=== PATIENT | female | born 1975 | race Caucasian/White ===

== ENCOUNTER 2022-11-14 16:16 | Emergency (ER) | payer OTHER, SELFPAY ==
[2022-11-14 16:28] VITALS: BP 124/85; PULSE 76; TEMP 36.6; O2SAT 99; BMI 32.1
--- NOTE | 2022-11-14 16:56 | CRLHL7_ITS ---
For Patients: As a result of the Century Cures Act, medical imaging exams and procedure reports are released immediately into your electronic medical record. You may view this report before your referring provider. If you have questions, please contact your health care provider. INDICATION: Dyspnea on exertion. TECHNIQUE: Two-view chest. FINDINGS: Clear lungs. Normal heart size and pulmonary vascularity. Mild thoracolumbar curve. No acute rib or sternal fracture identified. IMPRESSION: No acute cardiopulmonary process identified. Dictated by Jose Angel John MD @ 11/14/2022 5:40:53 PM (Electronically Signed)
--- NOTE | 2022-11-14 16:58 | ED.GENADULT ---
HPI - General Adult General Chief complaint: Dizziness/Vertigo Stated complaint: chest tightness, fatigue Time Seen by Provider: 11/14/22 16:18 History of Present Illness HPI narrative: This 47-year-old female comes in for evaluation of diffuse symptoms of malaise. She states that these have been present for the past month or so. She does report some episodes of nausea and diaphoresis. She states that she feels like she is more short of breath when ambulating up stairs. She works as a physically impaired teacher and is generally pretty active but feels like she is more tired and short of breath recently. She states that she feels some discomfort in her right and anterior chest. This discomfort is distinctly reproducible when taking a deep breath. She does not report any injury event. She states that she was painting in the lower level before Alexi and wonders if the fumes triggered some symptoms. That was more than a month ago. She had some vertigo symptoms few weeks ago that was diagnosed as a benign positional vertigo. She went to physical therapy and did some maneuvers to correct this but states that it triggered migraine symptoms. Related Data Home Medications Medication Instructions Recorded Confirmed levothyroxine 75 mcg tablet mcg 11/14/22 sumatriptan succinate 100 mg tablet mg PO 11/14/22 Previous Rx's Medication Instructions Recorded methylprednisolone 4 mg tablets in See Rx Instructions PO .COMPLEX 11/14/22 a dose pack (Medrol (Doc)) #21 ea Allergies Allergy/AdvReac Type Severity Reaction Status Date / Time metronidazole [From Flagyl] Allergy Unknown Verified 11/14/22 16:34 nitrofurantoin Allergy Unknown Verified 11/14/22 16:34 [From Macrobid] Penicillins Allergy Unknown Verified 11/14/22 16:34 Seafood Allergy Unknown Uncoded 11/14/22 16:34 Review of Systems Status of ROS: Reports: 10 or more systems reviewed and unremarkable except as noted in History and below Narrative: Constitutional: No fevers, no weight gain or loss. Eyes: No discharge. No vision changes. HENT: No congestion, no sore throat, no ear pain. Cardiovascular: No palpitations. Right-sided chest discomfort or pressure that is reproducible with a deep breath. Respiratory: No wheezes, no cough. Some shortness of breath when ambulating stairs. Gastrointestinal: No abdominal pain, no vomiting, no diarrhea. Genitourinary: No dysuria, no hematuria. Musculoskeletal: Normal range of motion. Skin: No rashes, no pruritis. Neurological: No weakness, sensory change, speech change. She had some vertigo symptoms a few weeks ago. Endo/Heme/Allergies: No bruising or bleeding. No polydipsia. Pysch: no suicidality, no anxiety, no insomnia. All other systems reviewed and are negative. Exam Narrative: Exam Narrative: Constitutional: Well-developed, well-nourished, no acute distress. HEENT: Normocephalic, atraumatic. Neck: Normal range of motion. Nontender. Supple. Heart: Regular. No murmurs. Normal rate. Intact distal pulses. Lungs: Clear to auscultation. No chest discomfort. No wheezes, rhonchi, or rales. Abdomen: Normal bowel sounds. Nontender. No rebound tenderness. Genitalia: Deferred. Back: No midline tenderness. Normal range of motion. Extremities: Normal range of motion. No injury. Skin: Intact. No rash. Warm. No erythema or pallor. Neurologic: No altered sensation. No weakness. Alert and oriented. No nystagmus. Psychiatric: No suicidality. No anxiety or depression. No insomnia. Nursing notes and vitals signs are reviewed. Const: Vital Signs, click to edit/add: Vital Signs - 24 hr 11/14/22 16:28 Temperature 97.9 F Pulse Rate [Pulse Oximeter] 76 Blood Pressure [Ri ght Upper Arm] 124/85 Pulse Oximetry 99 Oxygen Delivery Me thod Room Air Course Vital Signs Vital signs: Initial Vital Signs Temperature 97.9 F 11/14/22 16:28 Temperature Source Temporal Artery Scan 11/14/22 16:28 Pulse Rate 76 11/14/22 16:28 Blood Pressure 124/85 11/14/22 16:28 Blood Pressure Mean 98 11/14/22 16:28 Blood Pressure Position Sitting 11/14/22 16:28 Pulse Oximetry 99 11/14/22 16:28 Oxygen Delivery Method 11/14/22 16:28 Vital Signs Temperature 97.9 F 11/14/22 16:28 Pulse Rate 76 11/14/22 16:28 Blood Pressure 124/85 11/14/22 16:28 Pulse Oximetry 99 11/14/22 16:28 Oxygen Delivery Method 11/14/22 16:28 Temperature 97.9 F 11/14/22 16:28 Pulse Rate 76 11/14/22 16:28 Blood Pressure 124/85 11/14/22 16:28 Pulse Oximetry 99 11/14/22 16:28 Oxygen Delivery Method 11/14/22 16:28 Medical Decision Making MDM Narrative Medical decision making narrative: This patient comes in reporting some generalized fatigue with occasional chest discomfort that is reproducible with deep breathing. She has also had some vertigo symptoms recently. She is otherwise in good health and works as a physically impaired teacher. She did have an EKG done a few days ago in clinic with normal findings. Lab results are acquired today and returned with reassuring findings. In particular her D-dimer, troponin, and white count are normal. Testing for COVID, influenza, RSV, and mononucleosis returned negative. This is reassuring to the patient. Her symptoms are reproducible with deep breathing suggesting chest wall pain. At the time of discharge the patient appears safe for outpatient management. The treatment plan is reviewed along with written and verbal return precautions. Reasons to return and the importance of close followup were also reviewed. She received a prescription for Medrol Dosepak. Lab Data Labs: Lab Results 11/14/22 11/14/22 11/14/22 Range/Units 16:18 16:58 17:35 WBC (4.50-11.00) K/uL RBC (4.00-5.20) m/uL Hgb (12.0-16.0) gm/dL Hct (33.0-51.0) % MCV (80-100) fL MCH (26-34) pg MCHC (32-36) gm/dL RDW Coeff of Irma (11.5-15.5) % Plt Count (140-440) K/uL Neut % (Auto) (42.0-72.0) % Lymph % (Auto) (20-44) % [place] % (Auto) (0.0-11.0) % Eos % (Auto) (0.0-7.0) % Baso % (Auto) (0.0-3.0) % Neut # (Auto) (1.7-7.0) K/uL Lymph # (Auto) (0.90-2.90) K/uL [place] # (Auto) (0.00-0.90) K/UL Eos # (Auto) (0.00-0.50) K/uL Baso # (Auto) (0.00-0.30) K/uL ESR (2-20) mm/hr D-Dimer Quant (PE/DVT) (0.00-0.50) ug/ml Sodium 141 (135-149) mmol/L Potassium 4.9 (3.6-5.1) mmol/L Chloride 104 (96-114) mmol/L Carbon Dioxide 25 (20-32) mmol/L BUN 20 (5-24) mg/dL Creatinine 1.0 (0.5-1.5) mg/dL Estimated Creat Clear 76.06 Estimated GFR 69 ml/min Glucose 92 (60-115) mg/dL Calcium 9.7 (8.4-10.6) mg/dL Total Bilirubin (0.1-1.5) mg/dL Direct Bilirubin (0.0-0.5) mg/dL AST (12-35) U/L ALT (4-35) U/L Alkaline Phosphatase (40-150) U/L Total Protein (6.0-8.3) g/dL Albumin (3.3-5.0) g/dL TSH (0.270-4.20) uIU/mL SARS-CoV-2 (PCR) Negative SARS-CoV-2 (Negative) Monoscreen (Negative) Influenza Type A (PCR) Negative PCR FLU A (Negative) Influenza Type B (PCR) Negative PCR FLU B (Negative) RSV (PCR) Negative PCR RSV (Negative) POC Troponin I 0.00 L (0.01-0.04) ng/ml 11/14/22 11/14/22 11/14/22 Range/Units 17:35 17:35 17:35 WBC 7.95 (4.50-11.00) K/uL RBC 4.56 (4.00-5.20) m/uL Hgb 12.9 (12.0-16.0) gm/dL Hct 40.0 (33.0-51.0) % MCV 88 (80-100) fL MCH 28 (26-34) pg MCHC 32 (32-36) gm/dL RDW Coeff of Irma 14.0 (11.5-15.5) % Plt Count 267 (140-440) K/uL Neut % (Auto) 55.9 (42.0-72.0) % Lymph % (Auto) 36.9 (20-44) % [place] % (Auto) 5.8 (0.0-11.0) % Eos % (Auto) 0.9 (0.0-7.0) % Baso % (Auto) 0.5 (0.0-3.0) % Neut # (Auto) 4.45 (1.7-7.0) K/uL Lymph # (Auto) 2.93 H (0.90-2.90) K/uL [place] # (Auto) 0.50 (0.00-0.90) K/UL Eos # (Auto) 0.07 (0.00-0.50) K/uL Baso # (Auto) 0.04 (0.00-0.30) K/uL ESR 16 (2-20) mm/hr D-Dimer Quant (PE/DVT) (0.00-0.50) ug/ml Sodium (135-149) mmol/L Potassium (3.6-5.1) mmol/L Chloride (96-114) mmol/L Carbon Dioxide (20-32) mmol/L BUN (5-24) mg/dL Creatinine (0.5-1.5) mg/dL Estimated Creat Clear Estimated GFR ml/min Glucose (60-115) mg/dL Calcium (8.4-10.6) mg/dL Total Bilirubin (0.1-1.5) mg/dL Direct Bilirubin (0.0-0.5) mg/dL AST (12-35) U/L ALT (4-35) U/L Alkaline Phosphatase (40-150) U/L Total Protein (6.0-8.3) g/dL Albumin (3.3-5.0) g/dL TSH (0.270-4.20) uIU/mL SARS-CoV-2 (PCR) (Negative) Monoscreen Negative (Negative) Influenza Type A (PCR) (Negative) Influenza Type B (PCR) (Negative) RSV (PCR) (Negative) POC Troponin I (0.01-0.04) ng/ml 11/14/22 11/14/22 11/14/22 Range/Units 17:35 17:35 17:35 WBC (4.50-11.00) K/uL RBC (4.00-5.20) m/uL Hgb (12.0-16.0) gm/dL Hct (33.0-51.0) % MCV (80-100) fL MCH (26-34) pg MCHC (32-36) gm/dL RDW Coeff of Irma (11.5-15.5) % Plt Count (140-440) K/uL Neut % (Auto) (42.0-72.0) % Lymph % (Auto) (20-44) % [place] % (Auto) (0.0-11.0) % Eos % (Auto) (0.0-7.0) % Baso % (Auto) (0.0-3.0) % Neut # (Auto) (1.7-7.0) K/uL Lymph # (Auto) (0.90-2.90) K/uL [place] # (Auto) (0.00-0.90) K/UL Eos # (Auto) (0.00-0.50) K/uL Baso # (Auto) (0.00-0.30) K/uL ESR (2-20) mm/hr D-Dimer Quant (PE/DVT) < 0.27 (0.00-0.50) ug/ml Sodium (135-149) mmol/L Potassium (3.6-5.1) mmol/L Chloride (96-114) mmol/L Carbon Dioxide (20-32) mmol/L BUN (5-24) mg/dL Creatinine (0.5-1.5) mg/dL Estimated Creat Clear Estimated GFR ml/min Glucose (60-115) mg/dL Calcium (8.4-10.6) mg/dL Total Bilirubin 0.6 (0.1-1.5) mg/dL Direct Bilirubin 0.2 (0.0-0.5) mg/dL AST 29 (12-35) U/L ALT 25 (4-35) U/L Alkaline Phosphatase 62 (40-150) U/L Total Protein 8.4 H (6.0-8.3) g/dL Albumin 5.0 (3.3-5.0) g/dL TSH 2.830 (0.270-4.20) uIU/mL SARS-CoV-2 (PCR) (Negative) Monoscreen (Negative) Influenza Type A (PCR) (Negative) Influenza Type B (PCR) (Negative) RSV (PCR) (Negative) POC Troponin I (0.01-0.04) ng/ml Imaging Data Chest x-ray: Radiologist's impression: No acute cardiopulmonary process identified. Discharge Plan Discharge Clinical Impression: Acute chest wall pain Patient Disposition: Home, Self-Care Condition: Stable Additional Instructions: Take medication as prescribed. Use [id number] medicines also as needed and directed. Increase activity as tolerated. Follow up with MD or return if worsening. Prescriptions: New methylprednisolone [Medrol (Doc)] 4 mg tablets,dose pack See Rx Instructions .ROUTE .COMPLEX Qty: 21 0RF Rx Instructions: orally per package directions No Action sumatriptan succinate 100 mg tablet PO Label Comments: TAKE 1 TAB BY MOUTH AT ONSET OF MIGRAINE, MAY TAKE 1 MORE TAB 2 HRS LATER IF NEEDED (MAX 2/24 HRS). levothyroxine 75 mcg tablet Follow Up/Referrals: Provider,Not a Local [Primary Care Provider] - Stand Alone Forms: MyHealth Info Instructions
[2022-11-14 17:19] LABS: PCR FLU A Negative PCR FLU A (Negative); PCR FLU B Negative PCR FLU B (Negative); PCR RSV Negative PCR RSV (Negative)
[2022-11-14 17:23] LABS: SARS PCR* Negative SARS-CoV-2 (Negative)
[2022-11-14 17:44] LABS: Basophils Absolute Auto 0.04 K/uL (0.00-0.30); Basophils Percent Auto 0.5 % (0.0-3.0); Eosinophils Absolute Auto 0.07 K/uL (0.00-0.50); Eosinophils Percent Auto 0.9 % (0.0-7.0); Hemoglobin* 12.9 gm/dL (12.0-16.0); Lymphocytes Absolute Auto 2.93 K/uL (0.90-2.90); Lymphocytes Percent Auto 36.9 % (20-44); Mean Corpuscular HGB Conc 32 gm/dL (32-36); Mean Corpuscular Hemoglobin 28 pg (26-34); Mean Corpuscular Volume 88 fL (80-100); Monocytes Percent Auto 5.8 % (0.0-11.0); Neutrophils Absolute Auto 4.45 K/uL (1.7-7.0); Neutrophils Percent Auto 55.9 % (42.0-72.0); Platelet Count* 267 K/uL (140-440); Red Blood Count 4.56 m/uL (4.00-5.20); White Blood Count* 7.95 K/uL (4.50-11.00)
[2022-11-14 17:47] LABS: Slide Review Reflex No
[2022-11-14 17:59] LABS: Mono Screen* Negative (Negative)
[2022-11-14 18:15] LABS: Chloride* 104 mmol/L (96-114); Potassium* 4.9 mmol/L (3.6-5.1); Sodium* 141 mmol/L (135-149)
[2022-11-14 18:18] LABS: Blood Urea Nitrogen* 20 mg/dL (5-24); Carbon Dioxide* 25 mmol/L (20-32); Est. Creatinine Clearance* 76.06; Estimated Glomerular Filt Rate 69 ml/min; Glucose* 92 mg/dL (60-115)
[2022-11-14 18:19] LABS: Alanine Aminotransferase* 25 U/L (4-35); Aspartate Amino Transferase* 29 U/L (12-35); Bilirubin Direct* 0.2 mg/dL (0.0-0.5); Bilirubin Total* 0.6 mg/dL (0.1-1.5); Calcium* 9.7 mg/dL (8.4-10.6); Total Protein* 8.4 g/dL (6.0-8.3)
[2022-11-14 18:29] LABS: D Dimer Quantitative* < 0.27 ug/ml (0.00-0.50)
[2022-11-14 18:37] LABS: Erythrocyte SedimentationRate* 16 mm/hr (2-20)
[2022-11-14 19:19] LABS: Alkaline Phosphatase* 62 U/L (40-150)
[2022-11-14 19:48] VITALS: PULSE 75; O2SAT 98
== END 2022-11-14 19:50 | disposition home or self-care (01) ==
PROVIDERS: Emergency Provider Emergency Medicine Emergency Medical Services
DX: R07.89 Other chest pain (principal)
CPT/HCPCS: 36415; 71046; 80048; 80076; 84443; 84484; 85025; 85379; 85651; 86308; 87502; 87634; 87635; 99284

== ENCOUNTER 2022-11-16 13:40 | Emergency (ER) | payer OTHER, SELFPAY ==
[2022-11-16] VITALS (12 sets, daily range): BP systolic 126–140; BP diastolic 8–84; PULSE 57–68; RESP 20; TEMP 37.3; O2SAT 98–100; BMI 32.1
--- NOTE | 2022-11-16 14:04 | CRLHL7_ITS ---
For Patients: As a result of the Century Cures Act, medical imaging exams and procedure reports are released immediately into your electronic medical record. You may view this report before your referring provider. If you have questions, please contact your health care provider. Indication: Shortness of breath Technique: Contrast CT PE Comparison: No comparison Findings: Normal caliber thoracic aorta no pulmonary emboli. Right upper lobe granuloma. No effusion. No consolidation is seen. No effusion. Small hiatal hernia. No suspicious bony lesions. Too small to characterize low attenuation lesion in the left hepatic lobe. Impression: 1. No acute pulmonary emboli. Lungs appear clear. Please note that all CT scans at this facility use dose modulation, iterative reconstruction, and/or weight-based dosing when appropriate to reduce radiation dose to as low as reasonably achievable. Dictated by Carine Mcghee MD @ 11/16/2022 4:15:00 PM (Electronically Signed)
--- NOTE | 2022-11-16 14:08 | ED.GENADULT ---
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 She has had intermittent dizziness at that time and some vertigo. More recently she has had trouble with chest heaviness and shortness of breath with exertion. She recently seen and started on Medrol Dosepak she took a dose yesterday and again today and had some flushing in her face. She has had allergic reactions in the past to medications. She is on thyroid replacement as well as sumatriptan as needed for headache. The patient reports no mental health issues currently, denies leg swelling edema bleeding or clotting problems. She had a negative D-dimer in the past as well as reassuring EKG. She had a chest x-ray done in urgent care looked unremarkable as well by her history. She continues to have shortness of breath with exertion and feels fatigued. Related Data Home Medications Medication Instructions Recorded Confirmed levothyroxine 75 mcg tablet mcg 11/14/22 sumatriptan succinate 100 mg tablet mg PO 11/14/22 Previous Rx's Medication Instructions Recorded methylprednisolone 4 mg tablets in See Rx Instructions PO .COMPLEX 11/14/22 a dose pack (Medrol (Doc)) #21 ea Allergies Allergy/AdvReac Type Severity Reaction Status Date / Time metronidazole [From Flagyl] Allergy Unknown Verified 11/16/22 13:46 nitrofurantoin Allergy Unknown Verified 11/16/22 13:46 [From Macrobid] Penicillins Allergy Unknown Verified 11/16/22 13:46 Seafood Allergy Unknown Uncoded 11/14/22 16:34 Review of Systems Status of ROS: Reports: 10 or more systems reviewed and unremarkable except as noted in History and below [facility] Social History Smoking Status: Never smoker Do you use any of these nicotine containing products: None Second hand tobacco smoke exposure: No How often do you have a drink containing alcohol: monthly or less How many standard drinks containing alcohol do you have on a typical day: 1 or 2 How often do you have six or more drinks on one occasion: Never AUDIT-C Alcohol total score: 1 Non-prescribed substance use: denies use service: No Exam Narrative: Exam Narrative: Objective vital signs are unremarkable other than low-grade temperature HEENT is unremarkable no facial asymmetry mouth clear throat clear Neck is supple Chest clear Heart rhythm regular without murmur Abdomen benign soft Extremities are no edema neurologic nonfocal good peripheral perfusion noted Skin warm and dry Const: Vital Signs, click to edit/add: Vital Signs - 24 hr 11/16/22 13:47 11/16/22 14:49 11/16/22 14:50 Temperature 99.1 F Pulse Rate 57 L Pulse Rate [Pulse Oximeter] 67 Respiratory Rate 20 Blood Pressure [Ri t Upper Arm] 140/8 H Pulse Oximetry 100 100 100 Oxygen Delivery Me thod Room Air Course Vital Signs Vital signs: Initial Vital Signs Temperature 99.1 F 11/16/22 13:47 Temperature Source Temporal Artery Scan 11/16/22 13:47 Pulse Rate 67 11/16/22 13:47 Pulse Rhythm 11/16/22 13:47 Respiratory Rate 20 11/16/22 13:47 Blood Pressure 140/8 H 11/16/22 13:47 Blood Pressure Mean 52 11/16/22 13:47 Blood Pressure Position Supine 11/16/22 13:47 Pulse Oximetry 100 11/16/22 13:47 Oxygen Delivery Method 11/16/22 13:47 Vital Signs Temperature 99.1 F 11/16/22 13:47 Pulse Rate 67 11/16/22 13:47 Respiratory Rate 20 11/16/22 13:47 Blood Pressure 140/8 H 11/16/22 13:47 Pulse Oximetry 100 11/16/22 13:47 Oxygen Delivery Method 11/16/22 13:47 Temperature 99.1 F 11/16/22 13:47 Pulse Rate 57 L 11/16/22 14:50 Respiratory Rate 20 11/16/22 13:47 Blood Pressure 140/8 H 11/16/22 13:47 Pulse Oximetry 100 11/16/22 14:50 Oxygen Delivery Method 11/16/22 13:47 Medical Decision Making MDM Narrative Medical decision making narrative: 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 Had a illness wall doing painting in her basement. She tried to take Medrol for 2 doses and got a flushed reaction her face, no throat tightening, no difficulty breathing. She also reports a good amount of fatigue now. I think at this point would be reasonable to read do blood work, interestingly her got sick at the same time she did well during the house painting but he acquired antibiotics and got better. He also took a steroid pack. She does not appear to be having a significant allergic reaction. Does have some shortness of breath with activity. I think a cardiac rule out, D-dimer to rule out PE, CT scan of the chest, IV fluids would be appropriate at this time as well as electrolytes and other lab work. Will give IV Benadryl, IV fluid, disposition pending above findings. Lab Data Labs: Lab Results 11/16/22 11/16/22 11/16/22 Range/Units 14:26 14:26 14:26 WBC 12.69 H (4.50-11.00) K/uL RBC 4.72 (4.00-5.20) m/uL Hgb 13.4 (12.0-16.0) gm/dL Hct 40.6 (33.0-51.0) % MCV 86 (80-100) fL MCH 28 (26-34) pg MCHC 33 (32-36) gm/dL RDW Coeff of Irma 13.8 (11.5-15.5) % Plt Count 300 (140-440) K/uL Neut % (Auto) 75.0 H (42.0-72.0) % Lymph % (Auto) 18.6 L (20-44) % [place] % (Auto) 5.8 (0.0-11.0) % Eos % (Auto) 0.3 (0.0-7.0) % Baso % (Auto) 0.1 (0.0-3.0) % Neut # (Auto) 9.50 H (1.7-7.0) K/uL Lymph # (Auto) 2.40 (0.90-2.90) K/uL [place] # (Auto) 0.70 (0.00-0.90) K/UL Eos # (Auto) 0.00 (0.00-0.50) K/uL Baso # (Auto) 0.00 (0.00-0.30) K/uL D-Dimer Quant (PE/DVT) < 0.27 (0.00-0.50) ug/ml Sodium Cancelled Potassium Cancelled Chloride Cancelled Carbon Dioxide Cancelled BUN Cancelled Creatinine Cancelled Estimated Creat Clear Cancelled Estimated GFR Cancelled Glucose Cancelled Calcium Cancelled C-Reactive Protein Cancelled HCG, Qual (Negative) SARS-CoV-2 (PCR) (Negative) Influenza Type A (PCR) (Negative) Influenza Type B (PCR) (Negative) RSV (PCR) (Negative) 11/16/22 11/16/22 Range/Units 14:26 14:26 WBC (4.50-11.00) K/uL RBC (4.00-5.20) m/uL Hgb (12.0-16.0) gm/dL Hct (33.0-51.0) % MCV (80-100) fL MCH (26-34) pg MCHC (32-36) gm/dL RDW Coeff of Irma (11.5-15.5) % Plt Count (140-440) K/uL Neut % (Auto) (42.0-72.0) % Lymph % (Auto) (20-44) % [place] % (Auto) (0.0-11.0) % Eos % (Auto) (0.0-7.0) % Baso % (Auto) (0.0-3.0) % Neut # (Auto) (1.7-7.0) K/uL Lymph # (Auto) (0.90-2.90) K/uL [place] # (Auto) (0.00-0.90) K/UL Eos # (Auto) (0.00-0.50) K/uL Baso # (Auto) (0.00-0.30) K/uL D-Dimer Quant (PE/DVT) (0.00-0.50) ug/ml Sodium Potassium Chloride Carbon Dioxide BUN Creatinine Estimated Creat Clear Estimated GFR Glucose Calcium C-Reactive Protein HCG, Qual Negative (Negative) SARS-CoV-2 (PCR) Negative SARS-CoV-2 (Negative) Influenza Type A (PCR) Negative PCR FLU A (Negative) Influenza Type B (PCR) Negative PCR FLU B (Negative) RSV (PCR) Negative PCR RSV (Negative) Discharge Plan Discharge Clinical Impression: Dyspnea on exertion, Weakness Prescriptions: No Action sumatriptan succinate 100 mg tablet PO Label Comments: TAKE 1 TAB BY MOUTH AT ONSET OF MIGRAINE, MAY TAKE 1 MORE TAB 2 HRS LATER IF NEEDED (MAX 2/24 HRS). levothyroxine 75 mcg tablet methylprednisolone [Medrol (Doc)] 4 mg tablets,dose pack See Rx Instructions .ROUTE .COMPLEX Qty: 21 0RF Rx Instructions: orally per package directions Follow Up/Referrals: Provider,Not a Local [Primary Care Provider] -
[2022-11-16 14:40] LABS: Basophils Percent Auto 0.1 % (0.0-3.0); Eosinophils Percent Auto 0.3 % (0.0-7.0); Hematocrit 40.6 % (33.0-51.0); Hemoglobin* 13.4 gm/dL (12.0-16.0); Immature Granulocytes Pct Auto 0.2 %; Lymphocytes Percent Auto 18.6 % (20-44); Mean Corpuscular HGB Conc 33 gm/dL (32-36); Mean Corpuscular Hemoglobin 28 pg (26-34); Mean Corpuscular Volume 86 fL (80-100); Monocytes Percent Auto 5.8 % (0.0-11.0); Platelet Count* 300 K/uL (140-440); RDW Coefficient of Variation % 13.8 % (11.5-15.5); Red Blood Count 4.72 m/uL (4.00-5.20); White Blood Count* 12.69 K/uL (4.50-11.00)
[2022-11-16] MEDS: ASPIRIN 81 MG TAB.CHEW 324 MG PO (14:41)
[2022-11-16] MEDS: diphenhydrAMINE 50 MG/ML inj 25 MG IVP (14:41)
[2022-11-16] MEDS: 0.9 % SODIUM CHLORIDE 1000 ml 1,000 ML 6000 ML IV (14:42)
[2022-11-16 14:47] LABS: Slide Review Reflex No
[2022-11-16 14:56] LABS: Chloride* 105 mmol/L (96-114)
[2022-11-16 14:57] LABS: Potassium* 3.9 mmol/L (3.6-5.1); Sodium* 141 mmol/L (135-149)
[2022-11-16 14:59] LABS: Alanine Aminotransferase* 25 U/L (4-35); Alkaline Phosphatase* 67 U/L (40-150); Aspartate Amino Transferase* 21 U/L (12-35); Bilirubin Direct* 0.2 mg/dL (0.0-0.5); Bilirubin Total* 0.6 mg/dL (0.1-1.5); Blood Urea Nitrogen* 16 mg/dL (5-24); Carbon Dioxide* 24 mmol/L (20-32); Creatinine* 0.8 mg/dL (0.5-1.5); Est. Creatinine Clearance* 95.08; Estimated Glomerular Filt Rate 90 ml/min; Total Protein* 8.7 g/dL (6.0-8.3)
[2022-11-16 15:00] LABS: Calcium* 9.5 mg/dL (8.4-10.6); Glucose* 101 mg/dL (60-115)
[2022-11-16 15:07] LABS: NT Pro B Type NatriureticPept* 31 pg/mL
[2022-11-16 15:16] LABS: HCG Qualitative Serum* Negative (Negative)
[2022-11-16 15:21] LABS: PCR FLU A Negative PCR FLU A (Negative); PCR FLU B Negative PCR FLU B (Negative); PCR RSV Negative PCR RSV (Negative)
[2022-11-16 15:24] LABS: SARS PCR* Negative SARS-CoV-2 (Negative)
[2022-11-16 15:41] LABS: D Dimer Quantitative* < 0.27 ug/ml (0.00-0.50)
[2022-11-16 16:04] LABS: C Reactive Protein* < 0.5 mg/dL (0.5-1.0); Troponin I* < 0.01 ng/mL (0.01-0.04)
--- NOTE | 2022-11-16 16:19 | ED_ITS ---
HPI - General Adult General Time Seen by Provider: 16:19 Date Seen: 11/16/22 Chief complaint: Allergic Reaction Stated complaint: Allergic reaction to medication Time Seen by Provider: 11/16/22 13:41 Source: patient and family Mode of arrival: ambulatory Limitations: no limitations History of Present Illness HPI narrative: Patient accepted in sign-out from Dr. Chou, please see his note for complete history and physical. Briefly this is a 47-year-old female who comes in with flushing rash. She has felt the last couple weeks after doing some remodeling at home, spouse had similar symptoms but recovered. Since seen in the emergency department a couple days ago with these symptoms and at that time was prescribed methylprednisolone. After 2nd dose she noted flushing feeling, no breathing difficulty or throat swelling, decided to come back to the emergency department. Related Data Home Medications Medication Instructions Recorded Confirmed levothyroxine 75 mcg tablet mcg 11/14/22 sumatriptan succinate 100 mg tablet mg PO 11/14/22 Previous Rx's Medication Instructions Recorded methylprednisolone 4 mg tablets in See Rx Instructions PO .COMPLEX 11/14/22 a dose pack (Medrol (Doc)) #21 ea Allergies Allergy/AdvReac Type Severity Reaction Status Date / Time metronidazole [From Flagyl] Allergy Unknown Verified 11/16/22 13:46 nitrofurantoin Allergy Unknown Verified 11/16/22 13:46 [From Macrobid] Penicillins Allergy Unknown Verified 11/16/22 13:46 Seafood Allergy Unknown Uncoded 11/14/22 16:34 PFSH PFSH Social History Smoking Status: Never smoker Do you use any of these nicotine containing products: None Second hand tobacco smoke exposure: No How often do you have a drink containing alcohol: monthly or less How many standard drinks containing alcohol do you have on a typical day: 1 or 2 How often do you have six or more drinks on one occasion: Never AUDIT-C Alcohol total score: 1 Non-prescribed substance use: denies use service: No Exam Narrative: Exam Narrative: General: Well-developed and well-nourished, no acute distress Head: Atraumatic and normocephalic Eyes: Pupils are equal reactive, extraocular motions intact, conjunctiva clear ENT: External nose and ears are normal, posterior pharynx without erythema or exudate Neck: No midline cervical tenderness, full spontaneous range of motion the neck, trachea midline, no adenopathy Heart: Regular rate and rhythm no murmurs or thrills Lungs: Clear to auscultation bilaterally without wheezes or crackles Abdomen: Soft, nontender, nondistended with active bowel sounds Musculoskeletal: No tenderness, deformity, or edema Neurologic: Awake, alert, and oriented x3, no gross focal neurologic deficits, cranial nerves intact as tested Psych: Mood and affect are appropriate Skin: No rashes Const: Vital Signs, click to edit/add: Vital Signs - 24 hr 11/16/22 13:47 11/16/22 14:49 11/16/22 14:50 Temperature 99.1 F Pulse Rate 57 L Pulse Rate [Pulse Oximeter] 67 Respiratory Rate 20 Blood Pressure [Ri ght Upper Arm] 140/8 H Pulse Oximetry 100 100 100 Oxygen Delivery Me thod Room Air Course Course Hospital Course: Patient seen examined, prior records reviewed. Patient comes in with shortness of breath which is been ongoing along with some facial flushing after taking oral steroid. On exam here, vital is stable. No wheezes or crackles, lungs are clear. Labs ordered by prior provider independently interpreted by me demonstrate mild leukocytosis consistent with recent prednisone use, negative D- dimer, basic panel reassuring, better panel reassuring, CRP and troponin both negative, BNP normal. CT scan of the chest independently interpreted by me does not demonstrate any acute pulmonary embolism, no acute infiltrates or other abnormalities to explain patient's symptoms. Patient will be discharged with continued follow-up with her outpatient provider. Vital Signs Vital signs: Initial Vital Signs Temperature 99.1 F 11/16/22 13:47 Temperature Source Temporal Artery Scan 11/16/22 13:47 Pulse Rate 67 11/16/22 13:47 Pulse Rhythm 11/16/22 13:47 Respiratory Rate 20 11/16/22 13:47 Blood Pressure 140/8 H 11/16/22 13:47 Blood Pressure Mean 52 11/16/22 13:47 Blood Pressure Position Supine 11/16/22 13:47 Pulse Oximetry 100 11/16/22 13:47 Oxygen Delivery Method 11/16/22 13:47 Vital Signs Temperature 99.1 F 11/16/22 13:47 Pulse Rate 67 11/16/22 13:47 Respiratory Rate 20 11/16/22 13:47 Blood Pressure 140/8 H 11/16/22 13:47 Pulse Oximetry 100 11/16/22 13:47 Oxygen Delivery Method 11/16/22 13:47 Temperature 99.1 F 11/16/22 13:47 Pulse Rate 57 L 11/16/22 14:50 Respiratory Rate 20 11/16/22 13:47 Blood Pressure 140/8 H 11/16/22 13:47 Pulse Oximetry 100 11/16/22 14:50 Oxygen Delivery Method 11/16/22 13:47 Medical Decision Making Lab Data Labs: Lab Results 11/16/22 11/16/22 11/16/22 Range/Units 14:26 14:26 14:26 WBC 12.69 H (4.50-11.00) K/uL RBC 4.72 (4.00-5.20) m/uL Hgb 13.4 (12.0-16.0) gm/dL Hct 40.6 (33.0-51.0) % MCV 86 (80-100) fL MCH 28 (26-34) pg MCHC 33 (32-36) gm/dL RDW Coeff of [place]ma 13.8 (11.5-15.5) % Plt Count 300 (140-440) K/uL Neut % (Auto) 75.0 H (42.0-72.0) % Lymph % (Auto) 18.6 L (20-44) % [place] % (Auto) 5.8 (0.0-11.0) % Eos % (Auto) 0.3 (0.0-7.0) % Baso % (Auto) 0.1 (0.0-3.0) % Neut # (Auto) 9.50 H (1.7-7.0) K/uL Lymph # (Auto) 2.40 (0.90-2.90) K/uL [place] # (Auto) 0.70 (0.00-0.90) K/UL Eos # (Auto) 0.00 (0.00-0.50) K/uL Baso # (Auto) 0.00 (0.00-0.30) K/uL D-Dimer Quant (PE/DVT) < 0.27 (0.00-0.50) ug/ml Sodium Cancelled Potassium Cancelled Chloride Cancelled Carbon Dioxide Cancelled BUN Cancelled Creatinine Cancelled Estimated Creat Clear Cancelled Estimated GFR Cancelled Glucose Cancelled Calcium Cancelled Total Bilirubin (0.1-1.5) mg/dL Direct Bilirubin (0.0-0.5) mg/dL AST (12-35) U/L ALT (4-35) U/L Alkaline Phosphatase (40-150) U/L Troponin I (0.01-0.04) ng/mL C-Reactive Protein Cancelled NT-Pro-B Natriuret Pep pg/mL Total Protein (6.0-8.3) g/dL Albumin (3.3-5.0) g/dL HCG, Qual (Negative) SARS-CoV-2 (PCR) (Negative) Influenza Type A (PCR) (Negative) Influenza Type B (PCR) (Negative) RSV (PCR) (Negative) 11/16/22 11/16/22 11/16/22 Range/Units 14:26 14:26 14:26 WBC (4.50-11.00) K/uL RBC (4.00-5.20) m/uL Hgb (12.0-16.0) gm/dL Hct (33.0-51.0) % MCV (80-100) fL MCH (26-34) pg MCHC (32-36) gm/dL RDW Coeff of [place]ma (11.5-15.5) % Plt Count (140-440) K/uL Neut % (Auto) (42.0-72.0) % Lymph % (Auto) (20-44) % [place] % (Auto) (0.0-11.0) % Eos % (Auto) (0.0-7.0) % Baso % (Auto) (0.0-3.0) % Neut # (Auto) (1.7-7.0) K/uL Lymph # (Auto) (0.90-2.90) K/uL [place] # (Auto) (0.00-0.90) K/UL Eos # (Auto) (0.00-0.50) K/uL Baso # (Auto) (0.00-0.30) K/uL D-Dimer Quant (PE/DVT) (0.00-0.50) ug/ml Sodium 141 Potassium 3.9 Chloride 105 Carbon Dioxide 24 BUN 16 Creatinine 0.8 Estimated Creat Clear 95.08 Estimated GFR 90 Glucose 101 Calcium 9.5 Total Bilirubin 0.6 (0.1-1.5) mg/dL Direct Bilirubin 0.2 (0.0-0.5) mg/dL AST 21 (12-35) U/L ALT 25 (4-35) U/L Alkaline Phosphatase 67 (40-150) U/L Troponin I < 0.01 L (0.01-0.04) ng/mL C-Reactive Protein < 0.5 L NT-Pro-B Natriuret Pep 31 pg/mL Total Protein 8.7 H (6.0-8.3) g/dL Albumin 5.0 (3.3-5.0) g/dL HCG, Qual Negative (Negative) SARS-CoV-2 (PCR) Negative SARS-CoV-2 (Negative) Influenza Type A (PCR) Negative PCR FLU A (Negative) Influenza Type B (PCR) Negative PCR FLU B (Negative) RSV (PCR) Negative PCR RSV (Negative) Discharge Plan Discharge Clinical Impression: Dyspnea on exertion, Weakness Patient Disposition: Home, Self-Care Condition: Stable Instructions: Dyspnea (ED) Additional Instructions: Take Benadryl as needed for flushing or itching. Follow-up with your primary care doctor Activity Level: No Restrictions Discharge Diet: Regular Prescriptions: No Action sumatriptan succinate 100 mg tablet PO Label Comments: TAKE 1 TAB BY MOUTH AT ONSET OF MIGRAINE, MAY TAKE 1 MORE TAB 2 HRS LATER IF NEEDED (MAX 2/24 HRS). levothyroxine 75 mcg tablet methylprednisolone [Medrol (Doc)] 4 mg tablets,dose pack See Rx Instructions .ROUTE .COMPLEX Qty: 21 0RF Rx Instructions: orally per package directions Follow Up/Referrals: Provider,Not a Local [Primary Care Provider] - Stand Alone Forms: MyHealth Info Instructions
== END 2022-11-16 17:03 | disposition home or self-care (01) ==
PROVIDERS: Family Medicine; Emergency Provider Family Medicine
DX: R21 Rash and other nonspecific skin eruption (principal); R06.00 Dyspnea, unspecified; R53.1 Weakness
CPT/HCPCS: 36415; 71260; 80048; 80076; 83880; 84484; 84703; 85025; 85379; 86140; 87502; 87634; 87635; 93005; 94761; 96374; 99284; 99285; A9270; J1200; J7030; Q9967